=== PATIENT | male | born 1970 | race Two or more races ===

== ENCOUNTER 2023-07-31 08:45 | Emergency (ER) | payer OTHER ==
[2023-07-31 08:57] VITALS: BP 134/66; PULSE 85; RESP 18; TEMP 98.3; BMI 26.7
[2023-07-31] MEDS ORDERED: IBUPROFEN 600 MG TABLET (FP) PO ONE (10:00)
[2023-07-31] MEDS: IBUPROFEN 600 MG TABLET (FP) PO ONE (10:09)
== END 2023-07-31 11:00 | disposition home or self-care (01) ==
LOC: JERFT 08:45
DX: M25.522 Pain in left elbow (principal); X50.0XXA Overexertion from strenuous movement or load, initial encounter
CPT/HCPCS: 73070-TC-LT-FY; 99283-25

== ENCOUNTER 2024-05-28 04:13 | Day surgery (SDC) | payer OTHER ==
[2024-05-27 12:30] VITALS: BMI 25.7
[2024-05-28] MEDS ORDERED: HEPARIN NA (PORCINE) 5,000 UNITS/ML 1ML VIAL ONE (07:04)
[2024-05-28] MEDS ORDERED: cefOXitin SODIUM 2 GM VIAL (RESTRICTED TO ID) IVPB ONE (07:04)
[2024-05-28] MEDS ORDERED: BUPIVACAINE HCL/PF 0.25% (2.5MG/ML) 10 ML VIAL ONE (07:04)
[2024-05-28] MEDS ORDERED: ROCURONIUM BROMIDE 50 MG/5 ML SYRINGE ONE ×2 (07:36→09:09)
[2024-05-28] MEDS ORDERED: PROPOFOL 20 ML ONE ×2 (07:36→08:01)
[2024-05-28] MEDS ORDERED: SUCCINYLCHOLINE CHLORIDE 200 MG/10 ML SYRINGE ONE (07:36)
[2024-05-28] MEDS ORDERED: MIDAZOLAM HCL 2 MG/2 ML SINGLE DOSE VIAL ONE (07:36)
[2024-05-28] MEDS: cefOXitin SODIUM 2 GM VIAL (RESTRICTED TO ID) IVPB ONE ×2 (08:30)
[2024-05-28] MEDS: BUPIVACAINE HCL/PF 0.5% (5MG/ML) 10 ML VIAL IJ ONE ×2 (08:35)
[2024-05-28] MEDS ORDERED: SUGAMMADEX SODIUM 200 MG/2 ML VIAL ONE (09:57)
[2024-05-28] MEDS ORDERED: ONDANSETRON 4 MG/2 ML VIAL IVPUSH PRN (10:24)
[2024-05-28] MEDS ORDERED: LACTATED RINGERS SOLUTION 1,000 ML IV SCH (10:30)
[2024-05-28 13:10] VITALS: PULSE 88
[2024-05-28 13:45] VITALS: BP 123/77; RESP 20; TEMP 98.6
== END 2024-05-28 14:06 | disposition home or self-care (01) ==
LOC: JASU-SURG 04:13
PROVIDERS: ATTEND Surgery
PROC: 8E0W4CZ Robotic Assisted Procedure of Trunk Region, Percutaneous Endoscopic Approach (ICD-10-PCS; 2024-05-28)
PROC: 0YU64JZ Supplement Left Inguinal Region with Synthetic Substitute, Percutaneous Endoscopic Approach (ICD-10-PCS; principal; 2024-05-28 08:00)
DX: K40.30 Unilateral inguinal hernia, with obstruction, without gangrene, not specified as recurrent (principal)
CPT/HCPCS: 49650; S2900; 86850; 86900; 86901; 94760; C1781; J1644